=== PATIENT | male | born 1965 | race Caucasian/White ===

== ENCOUNTER → 2024-11-11 09:20 | Outpatient (REF) | payer OTHER, SELFPAY | LOC: WDC 09:20 | PROVIDERS: FAMILY PHYSICIAN Family Medicine | DX: N63.31 Unspecified lump in axillary tail of the right breast (principal); D17.39 Benign lipomatous neoplasm of skin and subcutaneous tissue of other sites | CPT/HCPCS: 76642 ==

== ENCOUNTER 2025-01-02 06:22 | Day surgery (SDC) | payer OTHER, SELFPAY ==
[2025-01-02 10:46] LABS: Glucose - Point of Care 200 mg/dl (70-99)
[2025-01-02 10:51] VITALS: BMI 35.1
[2025-01-02] MEDS: TYLENOL 1000 MG PO (10:52)
[2025-01-02] MEDS: HEPARIN 5000 UNITS SC (10:54)
[2025-01-02] MEDS: NORMOSOL-R/PLASMALYTE-A 1000 IV (10:55)
[2025-01-02 10:56] VITALS: BP 124/76; BMI 35.1
[2025-01-02] MEDS: NOVOLOG vial 2 UNITS SC (11:37)
[2025-01-02 12:59] LABS: Glucose - Point of Care 166 mg/dl (70-99)
[2025-01-02 13:53] VITALS: BP 116/67
--- NOTE | 2025-01-02 13:57 | W.IMMPOSTOP ---
Surgical Immed Post Op Note
-
Primary Surgeon: Luis Fernando
Assisting: Tiffanie RODRÍGUEZ
Pre-op Diagnosis: Right axillary lymphadenopathy
Post-op Diagnosis: Same
Procedure Performed: Excision right axillary lymph node
Anesthesia Type: MAC local
Specimen / Cultures: Right axilla lymph node
Estimated Blood Loss: 10cc
Complications: None immediate
Operative Findings: Firm but friable lymph node excised
--- NOTE | 2025-01-02 13:59 | OR.RPT ---
Operative Report
Operative Report
Primary Surgeon: Luis Fernando
Assisting: Tiffanie RODRÍGUEZ
Pre-op Diagnosis: Right axillary lymphadenopathy
Post-op Diagnosis: Same
Procedure Performed: Excision right axillary lymph node
Anesthesia Type: MAC local
Specimen / Cultures: Right axilla lymph node
Estimated Blood Loss: 10cc
Complications: None immediate
Operative Findings: Firm but friable lymph node excised
Date of Surgery: 01/02/25
Indications: This 59M has a history of NHL and underwent chemotherapy that was completed in 2021. Recently he developed recurrent lymphadenopathy primary of the right axilla. The area showed increased avidity on PET scan. Excisional biopsy of right
axillary lymph node was planned.
PROCEDURE: After informed consent was obtained, the patient was marked in the preoperative area and brought to the operative suite and placed in left lateral decubitus on the operating table. The patient was sedated, prepped and draped in the usual
sterile manner and an adequate local anesthetic was administered using lidocaine 1% with epi.
An incision was made over the node, and dissection was carried down to the capsule with Bovie electrocautery. The capsule was dissected free of surrounding attachments with blunt dissection and electrocautery. Ultimately it was undermined with
similar technique until it was excised in toto and passed off the table as specimen. It broke apart slightly and all pieces were retrieved.
The wound was then irrigated with copious sterile saline, and hemostasis was obtained using Bovie electrocautery. The skin was approximated with 3-0 Vicryl deep dermal interrupted sutures and 4-0 monocryl suture in a subcuticular fashion. Topical
skin glue was then applied. All surgical counts were reported as correct.
The patient tolerated the procedure well and was taken to the PACU in stable condition.
[2025-01-02 14:00] VITALS: BP 96/66
[2025-01-02 14:08] LABS: Glucose - Point of Care 157 mg/dl (70-99)
[2025-01-02 14:15] VITALS: BP 107/66
--- NOTE | 2025-01-02 14:42 | PTCARENOTE ---
PT did not sign safe discharge packet., PT unable to sign now due to anesthesia, PT is using an uber to get home, and someone is waiting for him at home
== END 2025-01-02 14:54 | disposition home or self-care (01) ==
LOC: SDS 06:22
PROVIDERS: ATTENDING PHYSICIAN Surgery
DX: C82.5 Diffuse follicle center lymphoma (principal); C83.7 Burkitt lymphoma
CPT/HCPCS: 38500; 88305; 82962